=== PATIENT | female | born 1980 | race Caucasian/White ===

== ENCOUNTER 2018-06-12 17:41 | Inpatient (IN) ==
[2018-06-15 08:27] VITALS: BP 167/82
== END 2018-06-15 09:04 | disposition home or self-care (01) | DRG 305 ==
LOC: N.ED 17:41 → SUATTDRO 19:58 → N.EDINP 19:58 → N.CC 20:18 → N.TELEN 06-13 19:16
PROVIDERS: ADMIT Internal Medicine; ATTEND Internal Medicine